=== PATIENT | male | born 1950 | race Caucasian/White ===

== ENCOUNTER 2022-06-21 08:04 | Outpatient (CLI) | payer MEDICARE, BC, SELFPAY ==
--- NOTE | 2022-06-21 08:00 | CRLHL7_ITS ---
For Patients: As a result of the Cures Act, medical imaging exams and procedure reports are released immediately into your electronic medical record. You may view this report before your referring provider. If you have questions, please contact your health care provider. Indication: FOLLOW-UP FOR RIGHT TOTAL HIP ARTHROPLASTY Technique: AP pelvis and two views right hip, three views total Findings/Impression: Hardware from a right total hip arthroplasty is in satisfactory position. Bone alignment is normal. No sign of acute fracture. Postop changes are within normal limits. Left hip arthroplasty also intact. Dictated by Renny Martínez MD @ 06/21/2022 9:16:06 AM (Electronically Signed)
--- OUTSIDE RECORDS SUMMARY | 2022-06-21 08:13 | XMS_ITS ---
:1950 Author Care Team Providers Name Role Phone Toya Christine Primary Care Provider Unavailable Allergies Code Code System Name Reaction Severity Status Onset NKDA ? Medications Name Status Start Date Stop Date ? ? amoxicillin 500 mg capsule Completed ? 04/15 fluocinonide 0.05 % topical solution Completed ? 04/15/2019 fluorouracil 5 % topical cream Active ? N ot available niacinamide ER 500 mg tablet,extended release Active ? Not available Take 2 tablets every day by oral route. Problems Name Status Onset Date Source ? Actinic Keratosis Active 04/15/2019 ? History of Malignant Basal Cell Neoplasm of Skin Active 04/15/2019 ? Procedures Date Name Performed by ? ? Mohs Surgery Information not avai lable Results Lab Results None recorded. Past Encounters None recorded. Social History None recorded. Vaccine List None recorded. Plan of Care Reminders Provider Appointments None recorded. ? ? Lab None recorded. ? ? Referral None recorded. ? ? Procedures None recorded. ? ? Surgeries None recorded. ? ? Imaging None recorded. ? ? Vitals None recorded.
--- OUTSIDE RECORDS SUMMARY | 2022-06-21 08:13 | XMS_ITS | Clinical Summary ---
:1950 Author Organization [employer] [place] [address] Care Team Providers Name Role Phone Jose Estrada MD Primary Care Provider [phone] Allergies Active Allergy Reactions Severity Noted Date Comments Unlisted Allergen (Include Detail In Comments) *Unknown 10/26/2021 Medications Medication Sig Dispensed Refills Start Date End Date Status niacinamide 500 mg Take 1 90 Tablet 3 03/29/2022 Active tabletIndications: Tablet (500 Skin cancer of mg) by mouth scalp in the morning and 1 Tablet (500 mg) in the evening. Take with meals. chlorthalidone Take 1 90 Tablet 3 05/31/2022 Acti ve (HYGROTON) 25 mg Tablet (25 tabletIndications: mg) by mouth Essential once daily. hypertension chlorthalidone Take 1 30 Tablet 11 03/29/2022 Disc ontinued (HYGROTON) 25 mg Tablet (25 2 (R eorder tabletIndications: mg) by mouth (E-cancel not Essential once daily. sent)) hypertension Active Problems Problem Noted Date Borderline diabetes 03/31/2021 Essential hypertension 06/04/2019 Family hx of aortic aneurysm 06/28/2017 Status post total bilateral knee replacement 5 Overview: R NÉSTOR - 03/26/20 with redo 04/13/20 due to post op infection Routine adult health maintenance 04/03/2013 Overview: Colonoscopy 03/2013 normal repeat in 10 y ears Hip osteoarthritis 05/30/2012 Buttock pain 05/30/2012 Degeneration of lumbar or lumbosacral intervertebral d isc 05/30/2012 Pure hypercholesterolemia 07/17/2007 Other and unspecified malignant neoplasm of skin of ot her and unspecified 07/17/2007 parts of face Overview: 2002-BCC Unspecified hearing loss 07/17/2007 Resolved Problems Problem Noted Date Resolved Date Status post left hip replacement 04/18/2016 020 Anticoagulation monitoring, INR range 2-3 02/05/2015 04/18/2016 Anticoagulation monitoring, special range 1.7 to 2.2 015 04/28/2016 Encounters Date Type Specialty Care Team Description 05/30/2022 Refill Jose Estrada Refill Request (CHLORTHALIDONE MD Satya 25MG TAB) 03/30/2022 Telephone Jose Estrada Prior Authoriz ation MD Satya (niacinamide 50 0 mg tablet Denied) 03/29/2022 Office Visit Jose Estrada Physical MD Satya 03/29/2022 Travel from Last 3 Months Immunizations Name Administration Dates Next Due AMB Influenza, IIV3 (Age >=3 years)(Flu 06/19/2012 Clinic Only) COVID-19 vaccine (Moderna 100mcg/0.5mL) 11/19/2020, 10/22/19 21 PF, MDV COVID-19 vaccine (Moderna Booster 01/20/2022, 07/13/2021 50mcg/0.25mL) PF, MDV Influenza, IIV3 (Age >=3 years) 06/10/2016, 06/13/2013, 11/2010 Influenza, Inactivated AIIV4 (Age 65+ 05/25/2020 Years) Preserv Free Influenza, Inactivated IIV3 (Age 65+ 06/27/2019, 06/11/2018, 06/11/2017 Years) Preserv Free Pneumococcal Poly,23-Valent (Pneumovax) 07/03/2018 Pneumococcal conj 13-Valent (Prevnar 13) 06/28/2017 Td (Age >=7 Years) 03/20/1996 Tdap 02/15/2019, 04/29/2009 Zoster (Shingrix-RZV, recombinant) 01/17/2019, 11/01/2018 Zoster (Zostavax-ZVL, live) 05/16/2012 Family History Medical History Relation Name Comments Alcohol/Drug Father d 40 MVA Heart Disease Maternal Grandmother d 65 yo [place] Heart Disease Mother CABG at 76 yo Other Mother b 1927 hx of car otid endarterectomy Good Health Sister Relation Name Status Comments Father Maternal Grandmother Mother Sister Social History Tobacco Use Types Packs/Day Years Used Date Never Smoker Smokeless Tobacco: Never Used Tobacco Cessation: Counseling Given: Yes Alcohol Use Standard Drinks/Week Comments Yes 0 (1 standard drink = 0.6 oz pure alcoho l) occ Sex Assigned at Date Recorded Not on file Obstetrics History Last Filed Vital Signs Vital Sign Reading Time Taken Comments Blood Pressure 130/79 03/29/2022 7:54 AM CDT Pulse 58 03/29/2022 7:54 AM CDT Temperature 36.8 ??C (98.3 ??F) 11/06/2017 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 Respiratory Rate - - Oxygen Saturation 98% 03/29/2022 7:54 AM CDT Inhaled Oxygen Concentration - - Weight 85.5 kg (188 lb 8 oz) 03/29/2022 7:54 AM CDT Height 177.8 cm (5' 10) 03/29/2022 7:54 AM CDT Body Mass Index 27.05 03/29/2022 7:54 AM CDT Plan of Treatment Upcoming Encounters Date Type Specialty Care Team Description 07/11/2022 Nurse/Clinic Staff Only Health Maintenance Due Date Last Done Comments COVID-19 vaccine series (5 - 03/17/2022 01/20/2022, 021, Booster for Moderna series) 11/19/2020, Addition al history exists Influenza for age 65+ 05/12/2022 05/25/2020, 06/27/2019, 06/11/2018, Additional history exists BMI (ht and wt on same day) for 03/29/2023 03/29/2022, 03/12, age 18+ 06/08/2020, Additional history exists Depression screening for age 12+ 03/30/2023 03/30/2022, , 06/08/2020, Additional history exists Colonoscopy through age 75 04/03/2023 04/03/2013, 3, 08/28/2002 Lipids for age 45-75 03/29/2027 03/29/2022, 03/31/2021, 06/08/2020, Additional history exists Tetanus booster 02/15/2029 02/15/2019, 04/29/2009, 03/20/1996 Hepatitis C screening for age Completed 04/16/2014 18-79 Pneumococcal series for age 65+ Completed 07/03/2018, 06/11 Zoster (shingles) series for age Completed 01/17/2019, , 50+ 05/16/2012 Tdap Completed 02/15/2019, 04/29/2009 Procedures Procedure Name Priority Date/Time Associated Diagnosis Comme nts HEMOGLOBIN A1C Routine 03/29/2022 8:51 Borderline diabetes Res ults for this SCREENING AM CDT procedure are i n the results section. PSA TOTAL SCREEN Routine 03/29/2022 8:51 Screening PSA (prosta te Results for this AM CDT specific antigen) procedure are in the results section. BASIC METABOLIC Routine 03/29/2022 8:51 Essential hypertension Results for this PANEL AM CDT procedure are i n the results section. LIPID PANEL W Routine 03/29/2022 8:51 Pure hypercholesterolemi a Results for this REFLEX MEASURED AM CDT procedure ar e in LDL the results section. from Last 3 Months Results HEMOGLOBIN A1C SCREENING (03/29/2022 8:51 AM CDT) P athologist Signature HEMOGLOBIN A1C 5.6 <=6.4 % 03/29/2022 [facility] SCREENING 3:22 PM CDT LABORATORY-[facility] Specimen Anatomical Collection Method / Collection Time Recei chase Time (Source) Location / Volume Laterality Blood BLOOD SPECIMEN / Venipuncture / 03/29/2022 8:51 2021 8:53 Unknown Unknown AM CDT AM CDT Narrative [facility]AT[facility] - 03/29/2022 3:22 PM CDT ? (<5.7%) ?Normal ? (5.7% to 6.4%) ? Indicates pr ediabetes ? (>=6.5%) ? Confirms diabetes Falsely low levels may be seen with: Recent Transfusion, Recent Significant B lood Loss, Hemolytic Diseases, or Falsely elevated levels may be seen with : Untreated Anemias, Splenectomy Jose Estrada MD CHEMISTRY Performing Organization Address City/[facility] Code Phon e Number [facility] [address] [place] [address] LABORATORY-[facility] 2000 LABORATORY LIPID PANEL W REFLEX MEASURED LDL (03/29/2022 8:51 AM CDT) [facility] gist Method Time Signature CHOLESTEROL,TOTAL 189 100 - 199 03/29/2022 [facility] mg/dL 6:08 PM CDT LABORATORY[facility] TRIGLYCERIDES 46 <150 03/29/2022 [facility] mg/dL 6:08 PM CDT [facility]AT[facility] HDL CHOLESTEROL 70 >40 mg/dL 03/29/2022 [facility] 6:08 PM CDT [facility] NON-HDL 119 <145 03/29/2022 [facility] CHOLESTEROL mg/dl 6:08 PM CDT [facility]AT[facility] CHOL/HDL RATIO 2.70 <4.50 03/29/2022 [facility] 6:08 PM CDT [facility] LDL CHOLESTEROL 110 <=130 03/29/2022 [facility] mg/dL 6:08 PM CDT [facility] VLDL CHOLESTEROL 9 <=30 03/29/2022 [facility] mg/dL 6:08 PM CDT [facility] PROVIDER ORDERED RANDOM 03/29/2022 [facility] STATUS 6:08 PM CDT [facility] Specimen Anatomical Collection Method / Collection Time Recei chase Time (Source) Location / Volume Laterality Blood BLOOD SPECIMEN / Venipuncture / 03/29/2022 8:51 2021 8:53 Unknown Unknown AM CDT AM CDT Jose Estrada MD CHEMISTRY Performing Organization Address [facility] Code Phon e Number [facility] [address] [place], [place] [id number] [address] LABORATORY-[facility] 2000 LABORATORY (ABNORMAL) BASIC METABOLIC PANEL (03/29/2022 8:51 AM CDT) Analysis Performed At Path logist Time Signature SODIUM 141 135 - 145 03/29/2022 [facility] mmol/L 6:07 PM CDT LABORATORY[facility] POTASSIUM 4.0 3.5 - 5.0 03/29/2022 [facility] mmol/L 6:07 PM CDT [facility]AT[facility] CHLORIDE 105 98 - 110 03/29/2022 [facility] mmol/L 6:07 PM CDT [facility] CO2,TOTAL 28 21 - 31 03/29/2022 [facility] mmol/L 6:07 PM CDT [facility] ANION GAP 8 5 - 18 03/29/2022 [facility] Your Policy Manager 6:07 PM CDT [facility] GLUCOSE 103 (H) 65 - 100 03/29/2022 [facility] mg/dL 6:07 PM CDT [facility]AT[facility] CALCIUM 9.0 8.5 - 10.5 03/29/2022 [facility] mg/dL 6:07 PM CDT [facility] BUN 19 8 - 25 03/29/2022 [facility] [employer] [facility] mg/dL 6:07 PM CDT [facility] CREATININE 0.82 0.72 - 03/29/2022 [facility] 1.25 mg/dL 6:07 PM CDT [facility] BUN/CREAT RATIO 23 (H) 10 - 20 03/29/2022 [facility] [employer] [facility] 6:07 PM CDT [facility] eGFR >90 >90 03/29/2022 [facility] mL/min/1.7 6:07 PM CDT LABORATORY-[facility] 3m2 TRAL LABORATORY Comment: As of 2021, eGFR is calcu lated by the CKD-EPI creatinine equation without race adjustment. eGFR can be inf luenced by muscle mass, exercise, and diet. The reported eGFR is an estimation only and is only applicable if the renal function is stable. Specimen Anatomical Collection Method / Collection Time Recei chase Time (Source) Location / Volume Laterality Blood BLOOD SPECIMEN / Venipuncture / 03/29/2022 8:51 2021 8:53 Unknown Unknown AM CDT AM CDT Jose Estrada MD CHEMISTRY Performing Organization Address City/State/ZIP Code Phon e Number [facility] [address] [place] [address] LABORATORY-[facility]ENTRAL 2000 LABORATORY (ABNORMAL) PSA TOTAL SCREEN (03/29/2022 8:51 AM CDT) Analysis Performed At Patho logist Time Signature PSA TOTAL 4.02 (H) <4.00 03/29/2022 [facility] (SCREEN) ng/mL 6:32 PM CDT LABORATORY[facility]ATORY Specimen Anatomical Collection Method / Collection Time Recei chase Time (Source) Location / Volume Laterality Blood BLOOD SPECIMEN / Venipuncture / 03/29/2022 8:51 2021 8:53 Unknown Unknown AM CDT AM CDT Narrative [facility] LABORATORY-CENTRAL LABORAT ORY - 03/29/2022 6:32 PM CDT The [employer] Specification Writer PSA assay is a Chemiluminescent Microparticle Immunoassay(CMIA). Assay values ob tained with different assay methods hattie ot be used interchangeably due to differences in assay methods and reagent specificity. Jose Estrada MD LABORATORY Performing Organization Address City/State/ZIP Code Phon e Number [facility] [address] [place] [address] LABORATORY-CENTRAL 1999 LABORATORY from Last 3 Months Insurance Payer Benefit Plan / Subscriber ID Effective Phone Address T ype Group Dates WC WORK[employer] WC STEVEN [id number] 2011-Pre [phone] [address] [address] COMP CMS sent [address] [place] [address] HEALTH [id number] 2014-Prese [address] [place] [address] (Work) [phone] [employer] Workers Comp Self 1950 [id number] (Home) [place] [phone] [place], [place] (Work) [address] Care Teams Milk Sampler Relationship Specialty Start Date End Date Jose Estrada MD PCP - General 06/06/07 [address] [place] [address]
--- NOTE | 2022-06-21 08:15 | CRLHL7_ITS ---
For Patients: As a result of the Cures Act, medical imaging exams and procedure reports are released immediately into your electronic medical record. You may view this report before your referring provider. If you have questions, please contact your health care provider. Indication: FOLLOW-UP RIGHT TOTAL KNEE ARTHROPLASTY Technique: Four views right knee including lateral flexion/extension Findings/Impression: Hardware from a right total knee arthroplasty is in satisfactory position. Bone alignment is normal. No sign of acute fracture. Postop changes are within normal limits. Dictated by Renny Martínez MD @ 06/21/2022 9:20:35 AM (Electronically Signed)
--- NOTE | 2022-06-21 08:45 | CRLHL7_ITS ---
For Patients: As a result of the Cures Act, medical imaging exams and procedure reports are released immediately into your electronic medical record. You may view this report before your referring provider. If you have questions, please contact your health care provider. Indication: FOLLOW-UP RIGHT TOTAL KNEE ARTHROPLASTY Technique: AP standing both knees Findings/Impression: Hardware from a bilateral total knee arthroplasty is in satisfactory position. Bone alignment is normal. No sign of acute fracture. Postop changes are within normal limits. Dictated by Renny Martínez MD @ 06/21/2022 9:21:12 AM (Electronically Signed)
== END 2022-06-21 08:05 | disposition home or self-care (01) ==
PROVIDERS: PCP Family Medicine
DX: Z96.641 Presence of right artificial hip joint (principal); Z96.651 Presence of right artificial knee joint
CPT/HCPCS: 73502; 73562; 73565

== ENCOUNTER 2023-03-08 07:08 | Outpatient (CLI) | payer MEDICARE, BC, SELFPAY ==
--- NOTE | 2023-03-08 07:15 | CRLHL7_ITS ---
For Patients: As a result of the Century Cures Act, medical imaging exams and procedure reports are released immediately into your electronic medical record. You may view this report before your referring provider. If you have questions, please contact your health care provider. Indication: Mild cognitive impairment Technique: Multiplanar, multisequence MRI of the brain obtained without contrast. Comparison: CT head 01/06/2018 Findings: The ventricles and cortical sulci are mildly prominent. No hydrocephalus or herniation. No acute/subacute ischemia, intracranial hemorrhage or abnormal extra-axial fluid collection. Minimal scattered FLAIR hyperintense foci are noted throughout the supratentorial white matter and jayla, typical of minor chronic microangiopathy. Midline structures are unremarkable. Major expected intracranial flow voids are visualized. Bone marrow signal is unremarkable. No suspicious findings in the regional soft tissues. A couple of presumed mucous retention cysts/polyps in the maxillary sinuses. No mastoid effusion. Unremarkable visualized orbits. Impression: 1. No evidence of acute intracranial abnormality. 2. Mild generalized cerebral volume loss, and minor chronic microangiopathy changes. Dictated by Karey Franklin MD @ 03/08/2023 11:57:47 AM (Electronically Signed)
== END 2023-03-08 07:09 | disposition home or self-care (01) ==
PROVIDERS: PCP Family Medicine; Visit Provider Family Medicine
DX: G31.84 Mild cognitive impairment of uncertain or unknown etiology (principal)
CPT/HCPCS: 70551

== ENCOUNTER 2023-09-07 08:00 | Outpatient (RCR) | payer MEDICARE, BC, SELFPAY | END 2024-01-05 23:59 | disposition home or self-care (01) | PROVIDERS: PCP Family Medicine; Visit Provider Family Medicine | DX: G31.01 Pick's disease (principal); F02.80 Dementia in other diseases classified elsewhere, unspecified severity, without behavioral disturbance, psychotic disturbance, mood disturbance, and anxiety; Z51.89 Encounter for other specified aftercare | CPT/HCPCS: 92507; 92523 ==